=== PATIENT | male | born 1950 | race Caucasian/White ===

== ENCOUNTER 2024-06-25 12:01 | Observation (INO) | payer OTHER ==
[2024-06-25] MEDS ORDERED: Nitroglycerin 2% Ointment 1 INCH/1 GM Packet ONE (13:45)
[2024-06-25 13:50] LABS: #Basophils 0.05 10x3/uL (0.0-0.2); %Basophils 0.5 % (0.0-1.0); %Eosinophils 2.9 % (0.0-10.0); %Lymphocytes 27.7 % (21.0-51.0); %Monocytes 9.4 % (0.0-10.0); %Neutrophils 59.2 % (42.0-75.0); Hematocrit 41.8 % (42.0-52.0); Hemoglobin 14.1 g/dL (14.0-18.0); Mean Corpuscular HGB CONC 33.7 g/dL (32.0-36.0); Mean Corpuscular Hemoglobin 28.4 pg (27.0-31.0); Mean Corpuscular Volume 84.1 fL (78.0-98.0); Mean Platelet Volume 11.6 fL (7.4-10.4); Platelet Count 213 10x3/uL (130-400); RBC Distribution Width 13.4 % (11.5-14.5); Red Blood Cell (RBC) Count 4.97 mill/uL (4.70-6.10)
[2024-06-25 14:01] LABS: ALT (SGPT) 10 U/L (Less than 45); AST (SGOT) 20 U/L (11-34); Albumin 3.8 g/dL (3.1-4.5); Alkaline Phosphatase 73 U/L (40-110); Anion Gap 14 mmol/L (10-20); BUN (Urea Nitrogen) 20 mg/dL (8.4-25.7); Calc. Creatinine Clearance 0 mL/min (70-130); Calcium 8.9 mg/dL (7.8-10.44); Carbon Dioxide 23 mmol/L (23-31); Chloride 112 mmol/L (98-107); Estimated GFR 83; Globulin 2.9 g/dL (2.4-3.5); Glucose 90 mg/dL (83-110); Lipase 26 U/L (8-78); Potassium 4.1 mmol/L (3.5-5.1); Protein, Total 6.7 g/dL (5.8-8.1); Sodium 145 mmol/L (136-145)
[2024-06-25 14:06] LABS: Troponin I 0.013 ng/mL (< 0.028)
[2024-06-25] MEDS ORDERED: Nitroglycerin 0.4 MG TAB (25 Tab Bottle) SL PRN (17:33)
[2024-06-25] MEDS ORDERED: Senokot S 8.6-50 MG TAB PO PRN (17:33)
[2024-06-25] MEDS ORDERED: Acetaminophen 650 MG Suppository PR PRN (17:33)
[2024-06-25] MEDS ORDERED: Acetaminophen 325 MG TAB PO PRN (17:33)
[2024-06-25 17:50] LABS: Troponin I 0.017 ng/mL (< 0.028)
[2024-06-25 19:00] LABS: Magnesium 2.3 mg/dL (1.6-2.6)
[2024-06-25 19:12] VITALS: BMI 24.7
[2024-06-25] MEDS: Carvedilol 6.25 MG TAB PO SCH (21:41)
[2024-06-25] MEDS: Simvastatin 10 MG TAB PO SCH (21:46)
[2024-06-26 01:46] LABS: Troponin I 0.021 ng/mL (< 0.028)
[2024-06-26 04:13] LABS: #Basophils 0.05 10x3/uL (0.0-0.2); %Basophils 0.5 % (0.0-1.0); %Eosinophils 2.3 % (0.0-10.0); %Lymphocytes 13.8 % (21.0-51.0); %Monocytes 8.1 % (0.0-10.0); Mean Corpuscular HGB CONC 32.6 g/dL (32.0-36.0); Mean Corpuscular Hemoglobin 28.3 pg (27.0-31.0); Mean Corpuscular Volume 86.9 fL (78.0-98.0); Mean Platelet Volume 10.9 fL (7.4-10.4); Platelet Count 217 10x3/uL (130-400); RBC Distribution Width 13.4 % (11.5-14.5); Red Blood Cell (RBC) Count 4.95 mill/uL (4.70-6.10)
[2024-06-26 04:43] LABS: Anion Gap 15 mmol/L (10-20); BUN (Urea Nitrogen) 21 mg/dL (8.4-25.7); Calc. Creatinine Clearance 78 mL/min (70-130); Calcium 8.7 mg/dL (7.8-10.44); Carbon Dioxide 21 mmol/L (23-31); Chloride 111 mmol/L (98-107); Estimated GFR 82; Glucose 107 mg/dL (83-110); Potassium 3.9 mmol/L (3.5-5.1); Sodium 143 mmol/L (136-145)
[2024-06-26] MEDS ORDERED: Regadenoson 0.4 MG/5 ML SYRINGE ONE (08:57)
[2024-06-26] MEDS: Aspirin 81 mg Enteric Coated Tablet PO SCH (11:26)
[2024-06-26] MEDS: Isosorbide Mononitrate 30 MG ER.TAB PO SCH (11:32)
[2024-06-26] MEDS: Enoxaparin 40 MG (0.4 mL) SYRINGE SC SCH (11:32)
[2024-06-26] MEDS: Clopidogrel Bisulfate 75 MG TAB PO SCH (11:32)
[2024-06-26 12:53] LABS: D-Dimer Test 0.5 mcg/mL (0.27-0.43)
[2024-06-26 12:54] LABS: INR-International Normal Ratio 1.2; PTT 38.1 sec (22.9-36.1); Prothrombin Time 14.7 sec (12.0-14.7)
[2024-06-26 17:26] VITALS: BP 102/57; TEMP 98.2
[2024-06-26] MEDS ORDERED: Carvedilol 25 MG TAB PO SCH (21:00)
== END 2024-06-26 19:10 ==
LOC: ERS 12:01 → EEVIPCON 12:01 → ERHOLD 15:33 → 2SE 20:48
PROVIDERS: ADMIT Family Medicine; ATTEND Family Medicine
DX: R07.89 Other chest pain (principal); R00.2 Palpitations; I11.0 Hypertensive heart disease with heart failure; I50.9 Heart failure, unspecified; I25.10 Atherosclerotic heart disease of native coronary artery without angina pectoris; I42.9 Cardiomyopathy, unspecified; Z95.5 Presence of coronary angioplasty implant and graft; Z95.0 Presence of cardiac pacemaker; Z88.5 Allergy status to narcotic agent; Z88.8 Allergy status to other drugs, medicaments and biological substances; Z79.02 Long term (current) use of antithrombotics/antiplatelets; Z79.899 Other long term (current) drug therapy
CPT/HCPCS: 36415; 71045; 78452; 80048; 80053; 83690; 83735; 83880; 84484; 85025; 85379; 85610; 85730; 86850; 86900; 86901; 93005; 93017; 94760; 96372; A9502; G0378; J1650; J2785